=== PATIENT | male | born 1955 | race Caucasian/White ===

== ENCOUNTER 2018-12-06 07:29 | Inpatient (IN) | payer OTHER ==
[~2018-12-06] VITALS: Ht 188 cm; Wt 98.1 kg
[2018-12-06] MEDS ORDERED: MORPHINE SULFATE 4 MG/ML, 1ML ONE ×3 (08:23→12:31)
[2018-12-06] MEDS ORDERED: SODIUM CHLORIDE FLUSH 10ML SYR IVF ONE (08:30)
[2018-12-06] MEDS: MORPHINE SULFATE 4 MG/ML, 1ML IVPush PRN ×2 (08:31→10:11)
[2018-12-06] MEDS ORDERED: ETOMIDATE 20 MG/10 ML IVPush ONE (09:00)
[2018-12-06] MEDS ORDERED: ETOMIDATE 20 MG/10 ML ONE (09:21)
--- NOTE | 2018-12-06 09:36 | NUR ---
SEE PROCEDURAL SEDATION PAPERWORK FOR NOTES ON PROCEDURE & VITAL SIGNS
--- NOTE | 2018-12-06 10:10 | NUR ---
INITIAL REDUCTION UNSUCCESSFUL, RN SETTING UP FOR RE-REDUCTION.
[2018-12-06] MEDS ORDERED: PROPOFOL 10 MG/ML, 20ML ONE ×3 (10:27→18:31)
--- NOTE | 2018-12-06 10:40 | NUR ---
XRAY CALLED TO REQUEST PROTABLE AT BEDSIDE PRIOR TO INITIATING PROCEDURE
[2018-12-06] MEDS ORDERED: PROPOFOL 10 MG/ML, 20ML IVPush ONE (11:00)
--- NOTE | 2018-12-06 11:45 | NUR ---
PROCEDURE COMPLETE, REPORT TO BEBETO COLLADO & PT CARE TRANSFERRED AT THIS TIME. PER MD LONDON, REDUCTION WAS AGAIN UNSUCCESSFUL AND SO PT WILL NEED TO GO TO SURGERY FOR SURGICAL REDUCTION.
--- NOTE | 2018-12-06 11:52 | NUR ---
rec report pt [id number] to be admit pt aware
[2018-12-06] MEDS ORDERED: MORPHINE SULFATE 4 MG/ML, 1ML IVPush ONE (12:30)
[2018-12-06 12:43] LABS: MEAN CORPUSCULAR HEMOGLOBIN 29.8 pg (27.5-34.5); MEAN CORPUSCULAR HGB CONC 33.5 g/dL (33.2-36.2); MEAN CORPUSCULAR VOLUME 88.9 fL (81-97); MEAN PLATELET VOLUME 7.8 fL (7.4-10.4); PLATELET COUNT 301 x10^3/uL (130-400); RED BLOOD COUNT 4.52 x10^6/uL (4.38-5.82); RED CELL DISTRIBUTION WIDTH 13.6 % (9.4-14.8)
[2018-12-06 12:52] LABS: ALBUMIN 3.7 g/dL (3.4-5.0); ANION GAP 9 mmol/L (5-15); CALCIUM 8.8 mg/dL (8.5-10.1); CHLORIDE 101 mmol/L (98-107); CREATININE 1.19 mg/dL (0.7-1.3); INTERNATIONAL NORMALIZED RATIO 0.96 (0.93-1.1); PROTHROMBIN TIME 10.2 Seconds (9.6-11.5)
[2018-12-06 13:08] LABS: BASOPHILS # (AUTO) 0.06 x10^3/uL (0-0.1); BASOPHILS % (AUTO) 1 % (0-1); EOSINOPHILS % (AUTO) 2 % (1-7); LYMPHOCYTES # (AUTO) 1.72 x10^3/uL (1-3.4); LYMPHOCYTES % (AUTO) 13 % (22-44); MD SCAN; MONOCYTES # (AUTO) 0.82 x10^3/uL (0.2-0.8); MONOCYTES % (AUTO) 6 % (2-9); NEUTROPHILS # (AUTO) 10.71 x10^3/uL (1.8-6.8); NEUTROPHILS % (AUTO) 79 % (42-75)
[2018-12-06] MEDS ORDERED: ONDANSETRON 2MG/ML, 2ML IVPush PRN (13:30)
[2018-12-06] MEDS ORDERED: hydrALAzine 20 MG/ML, 1ML IVPush PRN (13:30)
[2018-12-06 14:13] VITALS: BP 109/81
[2018-12-06] MEDS: KETOROLAC 30 MG/1 ML IV PRN (14:23)
[2018-12-06] MEDS: morphine SULFATE 10 MG/ML, 1ML IVPush PRN ×3 (14:23→14:51)
[2018-12-06] MEDS: SODIUM CHLORIDE 0.9% 1,000 ML IV SCH ×2 (14:23→22:54)
[2018-12-06] MEDS: INSULIN LISPRO 100 UNITS/ML, PEN SQ-INSULIN SCH ×2 (15:21→21:00)
[2018-12-06] MEDS: INSULIN GLARGINE 100 UNITS/ML, PEN SQ-INSULIN SCH (16:03)
[2018-12-06 17:23] LABS: MICROSCOPIC NOT IND
[2018-12-06 17:24] LABS: CULTURE INDICATED? NO
[2018-12-06] MEDS ORDERED: BUPIVACAINE/PF-EPI 0.5% 1:200K ONE (18:24)
[2018-12-06] MEDS ORDERED: NEOSPORIN OINT, 15GM ONE (18:24)
[2018-12-06] MEDS ORDERED: MIDAZOLAM 1 MG/ML, 2ML ONE (18:26)
[2018-12-06] MEDS ORDERED: FENTANYL PF 250 MCG/5ML ONE (18:26)
[2018-12-06] MEDS ORDERED: ONDANSETRON 2MG/ML, 2ML ONE (18:31)
[2018-12-06] MEDS ORDERED: CEFAZOLIN 1,000 MG ONE (18:31)
[2018-12-06] MEDS ORDERED: SUCCINYLCHOLINE 20 MG/ML, 10ML ONE (18:31)
[2018-12-06] MEDS ORDERED: DEXAMETHASONE 4 MG/ML, 1ML ONE (18:31)
[2018-12-06] MEDS ORDERED: ROCURONIUM 10 MG/ML,10ML ONE (18:31)
[2018-12-06] MEDS ORDERED: BUPIVACAINE/PF-EPI 0.5% 1:200K IM ONE (18:47)
[2018-12-06] MEDS ORDERED: EPHEDRINE 50 MG/ML, 1ML IVPush PRN (19:30)
[2018-12-06] MEDS ORDERED: PROMETHAZINE 12.5 MG SUPP PR PRN (19:30)
[2018-12-06] MEDS ORDERED: DIPHENHYDRAMINE 50 MG/ML, 1ML IVPush PRN (19:30)
[2018-12-06] MEDS ORDERED: PROMETHAZINE 25 MG SUPP PR PRN (19:30)
[2018-12-06] MEDS ORDERED: ONDANSETRON 2MG/ML, 2ML IV PRN (19:30)
[2018-12-06] MEDS ORDERED: EPHEDRINE 50 MG/ML, 1ML IM PRN (19:30)
[2018-12-06] MEDS ORDERED: MIDAZOLAM 1 MG/ML, 2ML IV PRN (19:30)
[2018-12-06] MEDS ORDERED: FENTANYL PF 100 MCG/2ML IV PRN (19:30)
[2018-12-06] MEDS ORDERED: MORPHINE SULFATE 4 MG/ML, 1ML IVPush PRN (19:30)
[2018-12-06] MEDS ORDERED: OXYcodone 5 MG/5 ML ORAL.SOL UDC PO PRN (19:30)
[2018-12-06] MEDS ORDERED: LABETALOL 5MG/ML, 20ML IV PRN (19:30)
[2018-12-06] MEDS ORDERED: ACETAMINOPHEN 325 MG TABLET PO PRN (19:30)
[2018-12-06] MEDS ORDERED: PROMETHAZINE 25 MG/ML, 1ML IV PRN (19:30)
[2018-12-06] MEDS ORDERED: ONDANSETRON ODT 8 MG PO PRN (19:30)
[2018-12-06] MEDS ORDERED: MEPERIDINE/PF 25MG/0.5ML IVPush PRN (19:30)
[2018-12-06] MEDS ORDERED: CEFAZOLIN PMX 1GM/50ML 50 ML IV SCH (20:00)
[2018-12-06] MEDS ORDERED: OXYcodone 5 MG/5 ML ORAL.SOL UDC ONE (20:37)
[2018-12-06 21:56] VITALS: BP 107/73
[2018-12-06] MEDS: CEFAZOLIN PMX 1GM/50ML 50 ML IV SCH (22:54)
[2018-12-07 00:14] VITALS: BP 126/84
[2018-12-07] MEDS: OXYcodone/APAP 7.5/325MG TABLET PO PRN ×5 (02:22→22:42)
[2018-12-07] MEDS: SODIUM CHLORIDE 0.9% 1,000 ML IV SCH ×3 (02:23→20:23)
[2018-12-07 04:30] LABS: BASOPHILS # (AUTO) 0.01 x10^3/uL (0-0.1); BASOPHILS % (AUTO) 0 % (0-1); EOSINOPHILS # (AUTO) 0.18 x10^3/uL (0-0.4); EOSINOPHILS % (AUTO) 2 % (1-7); LYMPHOCYTES # (AUTO) 0.61 x10^3/uL (1-3.4); LYMPHOCYTES % (AUTO) 7 % (22-44); MD NO; MEAN CORPUSCULAR HEMOGLOBIN 30.2 pg (27.5-34.5); MEAN CORPUSCULAR HGB CONC 34.1 g/dL (33.2-36.2); MEAN CORPUSCULAR VOLUME 88.8 fL (81-97); MEAN PLATELET VOLUME 8.1 fL (7.4-10.4); MONOCYTES # (AUTO) 0.51 x10^3/uL (0.2-0.8); MONOCYTES % (AUTO) 6 % (2-9); NEUTROPHILS # (AUTO) 7.31 x10^3/uL (1.8-6.8); NEUTROPHILS % (AUTO) 85 % (42-75); PLATELET COUNT 273 x10^3/uL (130-400); RED BLOOD COUNT 3.91 x10^6/uL (4.38-5.82); RED CELL DISTRIBUTION WIDTH 13.6 % (9.4-14.8)
[2018-12-07 04:39] LABS: ANION GAP 11 mmol/L (5-15); CHLORIDE 102 mmol/L (98-107)
[2018-12-07 04:41] LABS: CREATININE 1.42 mg/dL (0.7-1.3)
[2018-12-07] MEDS: CEFAZOLIN PMX 1GM/50ML 50 ML IV SCH (06:13)
[2018-12-07 07:08] VITALS: BP 99/64
[2018-12-07] MEDS: INSULIN LISPRO 100 UNITS/ML, PEN SQ-INSULIN SCH ×4 (08:16→22:10)
[2018-12-07] MEDS: INSULIN GLARGINE 100 UNITS/ML, PEN SQ-INSULIN SCH ×2 (08:17→21:59)
[2018-12-07] MEDS: ENOXAPARIN 40 MG/0.4 ML SQ SCH (08:17)
[2018-12-07 14:15] VITALS: BP 101/65
[2018-12-07 20:00] VITALS: BP 99/66
[2018-12-07] MEDS: KETOROLAC 30 MG/1 ML IV PRN (21:59)
[2018-12-08 02:05] VITALS: BP 99/66
[2018-12-08] MEDS: SODIUM CHLORIDE 0.9% 1,000 ML IV SCH (02:58)
[2018-12-08] MEDS: OXYcodone/APAP 7.5/325MG TABLET PO PRN ×2 (04:36→11:01)
[2018-12-08 07:35] VITALS: BP 109/73
[2018-12-08] MEDS: INSULIN LISPRO 100 UNITS/ML, PEN SQ-INSULIN SCH ×2 (07:58→11:04)
[2018-12-08] MEDS: INSULIN GLARGINE 100 UNITS/ML, PEN SQ-INSULIN SCH (09:27)
[2018-12-08] MEDS: ENOXAPARIN 40 MG/0.4 ML SQ SCH (09:27)
[2018-12-08] MEDS ORDERED: POLY17PO5 PO (10:38)
[2018-12-08] MEDS ORDERED: TRAM50TA2 PO (10:38)
[2018-12-08] MEDS ORDERED: HYDR-3652 PO (10:38)
[2018-12-08] MEDS ORDERED: OXYC5TAB3 PO (10:42)
[2018-12-08] MEDS ORDERED: VENL100T PO (10:42)
[2018-12-08] MEDS ORDERED: INSU100V8 SQ (10:42)
[2018-12-08] MEDS ORDERED: METF500T17 PO (10:42)
[2018-12-08] MEDS ORDERED: OLAN15TA9 PO (10:42)
[2018-12-08] MEDS ORDERED: MIRT30TA4 PO (10:42)
[2018-12-08] MEDS ORDERED: TRAZ300T2 PO (10:42)
[2018-12-08 11:39] LABS: ANION GAP 6 mmol/L (5-15); CALCIUM 8.2 mg/dL (8.5-10.1); CHLORIDE 106 mmol/L (98-107); CREATININE 1.11 mg/dL (0.7-1.3)
[2018-12-08] MEDS ORDERED: ASPI-515 PO (12:01)
== END 2018-12-08 12:45 | disposition home or self-care (01) | DRG 493 ==
LOC: ED 09:16 → EDIP 12:32 → 4NOR 14:05
PROVIDERS: ADMIT Hospitalist; ATTEND Internal Medicine
PROC: 0QSG04Z Reposition Right Tibia with Internal Fixation Device, Open Approach (ICD-10-PCS; 2018-12-06)
PROC: 2W3QX1Z Immobilization of Right Lower Leg using Splint (ICD-10-PCS; 2018-12-06)
PROC: 2W6 Placement, Anatomical Regions, Traction (ICD-10-PCS; 2018-12-06)
PROC: 0QSJ04Z Reposition Right Fibula with Internal Fixation Device, Open Approach (ICD-10-PCS; principal; 2018-12-06 19:30)
DX: S82.851A Displaced trimalleolar fracture of right lower leg, initial encounter for closed fracture (principal); R71.0 Precipitous drop in hematocrit; E11.9 Type 2 diabetes mellitus without complications; D72.829 Elevated white blood cell count, unspecified; F31.9 Bipolar disorder, unspecified; G89.29 Other chronic pain; M54.9 Dorsalgia, unspecified; W18.39XA Other fall on same level, initial encounter; Y93.89 Activity, other specified; Y92.89 Other specified places as the place of occurrence of the external cause; Y99.8 Other external cause status; Z79.4 Long term (current) use of insulin; Z80.0 Family history of malignant neoplasm of digestive organs
CPT/HCPCS: 27818; 36415; 71045; 76001; 80048; 81003; 82040; 82962; 83036; 85025; 85610; 85730; 93005; 96374; 96375; 96376; 99152; C1713; G0378; J0690; J1100; J1650; J1885; J2250; J2405; J2704; J3010; J0330; J1815; J2270; J7030

== ENCOUNTER → 2021-02-25 | Outpatient (CLI) | payer MEDICARE, OTHER ==
[~2021-02-25] MED LIST: ASPI-963 PO; HYDR-1067 PO; INSU100V8 SQ; METF500T17 PO; MIRT30TA4 PO; OLAN15TA9 PO; OXYC5TAB98 PO; POLY17PO5 PO; TRAM50TA2 PO; TRAZ300T2 PO; VENL100T PO
== END | disposition home or self-care (01) ==
LOC: RAD 13:42
PROVIDERS: ATTEND Specialist
DX: M17.11 Unilateral primary osteoarthritis, right knee (principal); M16.11 Unilateral primary osteoarthritis, right hip; M51.36 Other intervertebral disc degeneration, lumbar region; M48.061 Spinal stenosis, lumbar region without neurogenic claudication; M54.5 Low back pain; M25.78 Osteophyte, vertebrae
CPT/HCPCS: 72110